=== PATIENT | male | born 1940 | race Caucasian/White ===

== ENCOUNTER → 2017-05-19 | Outpatient (CLI) | payer OTHER ==
[~2017-05-19] MED LIST: ALBU6.7H INH; ASPI81 PO; ENAL20TA81 PO; FISH300C2 PO; GARL500T; GLUCTAB PO; GLYB1TAB51 PO; HYDR-2768 PO; LORT5TAB PO; MEDR4PAK3 PO; METO50TA PO; PIOG15 PO; SIMV20 PO; SYMB160A INH; VIAG100T PO; VITA500T10 PO
== END ==
LOC: CPRE 11:21
PROVIDERS: ATTEND Orthopaedic Surgery Sports Medicine
DX: M79.609 Pain in unspecified limb (principal)

== ENCOUNTER → 2017-07-14 | Outpatient (CLI) | payer OTHER | LOC: CPRE 14:58 | PROVIDERS: ATTEND Orthopaedic Surgery Sports Medicine | DX: M17.12 Unilateral primary osteoarthritis, left knee (principal) ==